=== PATIENT | female | born 1955 | race Caucasian/White ===

== ENCOUNTER → 2021-07-09 | Outpatient (CLI) | payer BC | LOC: KOH-I 07-03 14:30 | DX: C73 Malignant neoplasm of thyroid gland (principal); R59.0 Localized enlarged lymph nodes; Z90.89 Acquired absence of other organs | CPT/HCPCS: 76536 ==

== ENCOUNTER 2022-04-10 19:48 | Emergency (ER) | payer BC ==
[2022-04-10] MEDS ORDERED: CILOXAN 0.3% O2.5 ML OD (23:33)
== END 2022-04-11 00:40 | disposition home or self-care (01) ==
LOC: ER1 19:48
DX: H10.021 Other mucopurulent conjunctivitis, right eye (principal); R09.89 Other specified symptoms and signs involving the circulatory and respiratory systems; Z88.1 Allergy status to other antibiotic agents; Z88.8 Allergy status to other drugs, medicaments and biological substances
CPT/HCPCS: 99283

== ENCOUNTER 2022-04-11 16:23 | Emergency (ER) | payer BC ==
[~2022-04-11 16:23] MED LIST: CILOXAN 0.3% O2.5 ML OD
== END 2022-04-11 20:03 | disposition home or self-care (01) ==
LOC: ER1 16:23
DX: H10.9 Unspecified conjunctivitis (principal); I10 Essential (primary) hypertension; Z88.7 Allergy status to serum and vaccine; Z88.1 Allergy status to other antibiotic agents
CPT/HCPCS: 99282